=== PATIENT | male | born 1985 | race Caucasian/White ===

== ENCOUNTER → 2023-06-29 17:52 | Outpatient (REF) | payer BC, SELFPAY | LOC: RAD 17:52 | PROVIDERS: ATTENDING PHYSICIAN Nurse Practitioner Family | DX: M79.641 Pain in right hand (principal) | CPT/HCPCS: 73130 ==

== ENCOUNTER 2024-11-21 08:20 | Emergency (ER) | payer BC, SELFPAY ==
[2024-11-21 08:23] VITALS: BP 150/85
--- NOTE | 2024-11-21 09:15 | ED.GENMED ---
History of Present Illness
General
Chief Complaint: Musculo-Skeletal Complaint
Source: patient
Exam Limitations: none
Time Seen by Provider: 11/21/24 08:33
Nursing documentation reviewed up to this point in time: agreed with
History of Present Illness
History of Present Illness:
Patient is a 39-year-old male who complains of injury to left wrist. He reports last night he [place] the onto the dock and hit his left wrist. He is right-hand dominant. He denies any other injuries. He has not taken anything for
pain today. Patient reports it does not hurt to touch and only has discomfort when he flexes or extends his left wrist.
Past History
Past History
ED Past Medical History: Other (Migraines) and Other (Takes Fluoxetine)
ED Past Surgical History: None
Social History
Tobacco: Non-smoker
Alcohol: Occasional
Personal:
Living: with family
Employment: Employed
Phy Exam
General Physical Exam
General Presentation: no apparent distress
General age: appears stated age
General Skin: warm and dry
General Habitus: normal
General Mental: alert
General Hydration: appears well hydrated
Neurological Exam
Neurological Exam: alert and oriented x3
Musculoskeletal Exam
Musculoskeletal Exam: other (Left wrist with no tenderness or swelling ; patient has mild discomfort with flexion extension of wrist no hand tenderness no abrasions or lacerations.)
Skin Exam
Skin Exam: normal color and warm/dry
Psychiatric Exam
Psychiatric Exam: normal mood/affect
Course
Orders/Labs/Results
Orders:
Orders
11/21/24 08:24
Wrist, Left 3 Views CR [CR Wrist - Left Min 3 Views] Urgent
Comment:
Reason For Exam: injury
11/21/24 09:11
Splints/Slings/Crut- Treatment ONCE
Location: Left
Type of Splint: [place] Wrist
11/21/24 09:14
Ibuprofen [Motrin] 600 mg PO NOW STA
Vital Signs
Initial and Last Documented VS:
Initial Vital Signs
Temp Pulse Resp BP Pulse Ox
98 F 72 16 150/85 97
11/21/24 08:23 11/21/24 08:23 11/21/24 08:23 11/21/24 08:23 11/21/24 08:23
Last Documented Vital Signs
Temp Pulse Resp BP Pulse Ox
98 F 72 16 150/85 97
11/21/24 08:23 11/21/24 08:23 11/21/24 08:23 11/21/24 08:23 11/21/24 08:23
MDM/Problems Addressed
Differential Diagnosis Includes:
Not limited to contusion, fracture, sprain strain
MDM/Problems Addressed:
Symptoms are consistent with left wrist contusion mild sprain strain. Will DC with universal splint, ice and NSAIDs with Ortho as needed.
*Radiology
Radiology exam reviewed: radiology read reviewed
*Pulse Oximetry
SaO2: 97
Oxygen Mode of Delivery: Room air
Patient hypoxic: no
*Critical Care Note
Total Time (30-74mins, 75-104mins- exclusive of procedures): Not Applicable
ED Attending Note
-
Portions of this chart may have been created with voice recognition software.� Occasional wrong word or��sound alike� substitutions may have occurred due to the inherent limitations of voice recognition software.
Discharge Plan
Departure
Patient Disposition: Home (Routine Discharge)
Date of Disposition: 11/21/24
Time of Disposition: 09:17
Patient with high blood pressure during this ER visit?: Yes
Condition: Fair
Covid-19: Not Applicable
Discharge Problem:
Contusion of left wrist, Left wrist sprain
Instructions: Contusion (DC), Wrist Sprain ED
Prescriptions:
No Action
fluticasone propionate 1 SPRAY spray,suspension
1 spray intranasal DAILY PRN (Reason: allergy)
fluoxetine 40 MG capsule
40 mg PO DAILY
lorazepam 0.5 MG tablet
0.5 mg PO Q4HPRN PRN (Reason: anxiety)
levofloxacin [Levaquin] 500 MG tablet
500 mg PO DAILY Qty: 6 0RF
metronidazole 500 MG tablet
500 mg PO TID Qty: 21 0RF
cephalexin 500 MG capsule
500 mg PO QID Qty: 28 0RF
sulfamethoxazole-trimethoprim 1 TABLET tablet
1 tab PO BID Qty: 14 0RF
Referrals:
Juan Norwood MD [Active, Orthopedics]
Activity Restrictions/Additional Instructions:
As discussed symptoms are consistent with most likely contusion, mild sprain strain.
Wear splint as discussed for support ; you may remove as needed. Ice the affected area for the next 24 to 48 hours 20 minutes at a time several times a day. Ibuprofen every Food. Follow-Up with Family Doctor in the Next Several Days and
Orthopedics As Needed. Return If Any Worsening of Symptoms.
Interventions
Interventions:
*Risk Screen - Suicide Last Done: 11/21/24 08:23
*Neglect/Abuse Screening Last Done: 11/21/24 08:23
Discharge Date and Time
Print Language: JAPANESE
[2024-11-21] MEDS: MOTRIN 600 MG PO (09:23)
== END 2024-11-21 09:56 | disposition home or self-care (01) ==
LOC: EMR 08:20
PROVIDERS: EMERGENCY PHYSICIAN Emergency Medicine; FAMILY PHYSICIAN Family Medicine
DX: S60.212A Contusion of left wrist, initial encounter (principal); S63.502A Unspecified sprain of left wrist, initial encounter; X58.XXXA Exposure to other specified factors, initial encounter
CPT/HCPCS: 99283; 29125; 73110